=== PATIENT | female | born 1970 | race Caucasian/White ===

== ENCOUNTER 2020-11-08 22:50 | Day surgery (SDCO) | payer SELFPAY ==
[~2020-11-08] VITALS: Ht 170.2 cm; Wt 71.8 kg
[~2020-11-08 22:50] MED LIST: ALLOPURINOL300 MG PO; ATENOLOL25 MG PO; BENTYL10 MG PO; CARTIA XT240 MG PO; COZAAR50 MG PO; ELIQUIS5 MG PO; GLUCOTROL XL5 MG PO; HCTZ25 MG PO; HYDROCHLOROTH12.5 MG PO; K-DUR20 MEQ PO; LASIX40 MG PO; LISINOPRIL 10MG10 MG PO; NORVASC5 MG PO; PLAVIX75 MG PO; PROTONIX 40MG T40 MG PO; SIMVASTATIN20 MG PO; XANAX0.5 MG PO; ZOLOFT50 MG PO
[2020-11-09 00:54] LABS: BASOPHIL 1.3 % (0-2); HGB 12.3 g/dl (12.5-16.0); LYMPHOCYTE 19.3 % (15-48); MCH 33.1 pg (25.0-31.0); MCHC 37.3 g/dL (32.0-36.0); MCV 88.7 fL (78.0-100.0); MONOCYTE 9.6 % (0-12); MPV 10.6 fL (6.0-9.5); NEUTROPHIL 68.5 % (41-80); NRBC 0; PLT 161 K/uL (150-400); RBC 3.72 M/uL (4.20-5.40); RDW 11.5 % (11.5-14.0); WBC 3.8 K/uL (4.0-10.5)
[2020-11-09 00:58] LABS: BILIRUBIN NEGATIVE (NEGATIVE); BLOOD NEGATIVE Ery/uL (NEGATIVE); CLARITY CLEAR (CLEAR); COLOR YELLOW (YELLOW); GLUCOSE (U) NORMAL (NORMAL); LEUKOCYTES 1+ Leu/uL (NEGATIVE); NITRITE POSITIVE (NEGATIVE); PROTEIN NEGATIVE (NEGATIVE); UROBILINOGEN 0.2 mg/dL (0.2-1.0); pH 6.5 (5.0-9.0)
[2020-11-09 01:00] LABS: AMPHETAMINES NEGATIVE (NEGATIVE); BARBITURATES NEGATIVE (NEGATIVE); ECSTASY (MDMA) NEGATIVE (NEGATIVE); MARIJUANA (THC) NEGATIVE (NEGATIVE); METHADONE NEGATIVE (NEGATIVE); OPIATES NEGATIVE (NEGATIVE); OXYCODONE NEGATIVE (NEGATIVE)
[2020-11-09 01:06] LABS: BACTERIA 4+; URINARY WBC RARE
[2020-11-09 01:15] LABS: LACTIC ACID 3.1 mmol/L (0.4-1.9)
[2020-11-09 01:20] LABS: ALBUMIN 4.1 g/dL (3.4-5.0); ALKALINE PHOSHATASE 114 U/L (46-116); ALT 48 U/L (14-59); AST 62 U/L (15-37); BILIRUBIN - TOTAL 0.5 mg/dL (0.2-1.0); BUN 5 mg/dL (7-18); BUN/CREAT RATIO (CALC) 8.2 RATIO; CHLORIDE 84 mmol/L (98-107); CO2 (BICARBONATE) 22 mmol/L (21-32); CREATININE 0.61 mg/dL (0.51-0.95); GLOBULIN (CALCULATION) 4.1 g/dL; GLUCOSE 93 mg/dL (74-106); MAGNESIUM 1.6 mg/dL (1.8-2.4); POTASSIUM 4.6 mmol/L (3.5-5.1); TOTAL PROTEIN 8.2 g/dL (6.4-8.2)
[2020-11-09 01:28] LABS: ACETAMINOPHEN (TYLENOL) < 2.0 ug/mL (10.0-30.0)
[2020-11-09] MEDS ORDERED: NEURONTIN300 MG PO (06:20)
[2020-11-09] MEDS ORDERED: BUSPIRONE HCL15 MG PO (06:21)
[2020-11-09 07:35] LABS: BUN/CREAT RATIO (CALC) 6.5 RATIO; CREATININE 0.62 mg/dL (0.51-0.95); MAGNESIUM 1.3 mg/dL (1.8-2.4); POTASSIUM 4.1 mmol/L (3.5-5.1)
[2020-11-09 07:40] LABS: LACTIC ACID 1.8 mmol/L (0.4-1.9)
[2020-11-09 14:17] LABS: BUN/CREAT RATIO (CALC) 4.8 RATIO; CREATININE 0.63 mg/dL (0.51-0.95); POTASSIUM 3.5 mmol/L (3.5-5.1)
[2020-11-10 05:48] LABS: BASOPHIL 0.6 % (0-2); EOSINOPHIL 1.8 % (0-5); HCT 31.6 % (37.0-47.0); HGB 11.6 g/dl (12.5-16.0); LYMPHOCYTE 16.7 % (15-48); MCH 33.8 pg (25.0-31.0); MCHC 36.7 g/dL (32.0-36.0); MCV 92.1 fL (78.0-100.0); MONOCYTE 10.3 % (0-12); MPV 11.3 fL (6.0-9.5); NEUTROPHIL 70.6 % (41-80); NRBC 0; PLT 127 K/uL (150-400); RBC 3.43 M/uL (4.20-5.40); RDW 11.8 % (11.5-14.0); WBC 3.4 K/uL (4.0-10.5)
[2020-11-10 06:24] LABS: ALBUMIN 3.5 g/dL (3.4-5.0); BILIRUBIN - TOTAL 0.6 mg/dL (0.2-1.0); BUN/CREAT RATIO (CALC) 6.8 RATIO; CREATININE 0.73 mg/dL (0.51-0.95); GLOBULIN (CALCULATION) 3.7 g/dL; MAGNESIUM 1.8 mg/dL (1.8-2.4); TOTAL PROTEIN 7.2 g/dL (6.4-8.2)
[2020-11-10] MEDS ORDERED: CARAFATE1 GM PO (08:16)
[2020-11-10] MEDS ORDERED: NICOTINE PATCH1 EAC2 EXT (08:16)
[2020-11-10] MEDS ORDERED: KEFLEX250 MG PO (08:16)
[2020-11-10] MEDS ORDERED: ZOFRAN4 M1 PO (08:16)
--- NOTE | 2020-11-10 09:37 | NUR ---
11/10/20 Ms. Esquivel lives at home with her spouse. Her spouse started a new job and will have insurance in several days.
== END 2020-11-10 11:18 | disposition home or self-care (01) ==
LOC: FER 22:50 → FICU 11-09 03:09
PROVIDERS: Emergency Medicine Emergency Medical Services; Hospitalist; Nurse Practitioner; ADMIT Allergy & Immunology Allergy
DX: E87.1 Hypo-osmolality and hyponatremia (principal); F10.10 Alcohol abuse, uncomplicated; G93.41 Metabolic encephalopathy; I10 Essential (primary) hypertension; Z88.2 Allergy status to sulfonamides; F41.9 Anxiety disorder, unspecified; F17.210 Nicotine dependence, cigarettes, uncomplicated; N30.00 Acute cystitis without hematuria; F32.9 Major depressive disorder, single episode, unspecified; I49.8 Other specified cardiac arrhythmias; Z20.822 Contact with and (suspected) exposure to COVID-19
CPT/HCPCS: 36415; 36600; 71045; 80048; 80053; 80305; 81001; 82803; 83605; 83735; 83880; 84484; 85025; 85379; 87040; 87076; 87088; 87186; 93005; 94010; C9113; G0378; G0480; J0696; J1650; J1940; J2060; J2405; J2543; J2550; J2800; J3411; J3475; J7030; J7050; J7120; U0002

== ENCOUNTER 2022-01-20 09:20 | Emergency (ER) | payer OTHER ==
[~2022-01-20 09:20] MED LIST changes: +BUSPIRONE HCL15 MG PO; +CARAFATE1 GM PO; +KEFLEX250 MG PO; +NEURONTIN300 MG PO; +NICOTINE PATCH1 EAC2 EXT; +ZOFRAN4 M1 PO
[2022-01-20 10:31] LABS: BASOPHIL 0.5 % (0-2); EOSINOPHIL 0.1 % (0-5); HCT 35.1 % (37.0-47.0); HGB 12.4 g/dl (12.5-16.0); LYMPHOCYTE 6.2 % (15-48); MCH 33.6 pg (25.0-31.0); MCHC 35.3 g/dL (32.0-36.0); MCV 95.1 fL (78.0-100.0); MONOCYTE 4.6 % (0-12); MPV 10.8 fL (6.0-9.5); NEUTROPHIL 88.2 % (41-80); NRBC 0; PLT 158 K/uL (150-400); RBC 3.69 M/uL (4.20-5.40); RDW 12.3 % (11.5-14.0); WBC 7.6 K/uL (4.0-10.5)
[2022-01-20 10:37] LABS: AMPHETAMINES NEGATIVE (NEGATIVE); BARBITURATES NEGATIVE (NEGATIVE); ECSTASY (MDMA) NEGATIVE (NEGATIVE); MARIJUANA (THC) NEGATIVE (NEGATIVE); METHADONE NEGATIVE (NEGATIVE); OPIATES NEGATIVE (NEGATIVE); OXYCODONE NEGATIVE (NEGATIVE)
[2022-01-20 10:40] LABS: BILIRUBIN NEGATIVE (NEGATIVE); BLOOD TRACE-INTACT Ery/uL (NEGATIVE); CLARITY CLEAR (CLEAR); COLOR YELLOW (YELLOW); GLUCOSE (U) NORMAL (NORMAL); PROTEIN NEGATIVE (NEGATIVE); SPECIFIC GRAVITY 1.015 (1.001-1.030)
[2022-01-20 10:41] LABS: LEUKOCYTES 2+ Leu/uL (NEGATIVE); NITRITE POSITIVE (NEGATIVE)
[2022-01-20 10:43] LABS: BACTERIA 2+; URINARY RBC RARE
[2022-01-20 10:45] LABS: INR 1.01 (0.9-1.2); PTT 25.8 SECONDS (24.9-34.6)
[2022-01-20 11:29] LABS: ALBUMIN 4.5 g/dL (3.4-5.0); ALKALINE PHOSHATASE 106 U/L (46-116); ALT 31 U/L (14-59); AST 37 U/L (15-37); BILIRUBIN - TOTAL 0.5 mg/dL (0.2-1.0); BUN 5 mg/dL (7-18); BUN/CREAT RATIO (CALC) 7.6 RATIO; CHLORIDE 86 mmol/L (98-107); CO2 (BICARBONATE) 26 mmol/L (21-32); CREATININE 0.66 mg/dL (0.51-0.95); GLOBULIN (CALCULATION) 3.8 g/dL; GLUCOSE 102 mg/dL (74-106); LIPASE 119 U/L (73-393); POTASSIUM 5.1 mmol/L (3.5-5.1); TOTAL PROTEIN 8.3 g/dL (6.4-8.2)
[2022-01-20] MEDS ORDERED: ONDANSETRON ODT4 MG PO (13:58)
[2022-01-20] MEDS ORDERED: BACTRIM DS TAB1 EACH PO (13:58)
[2022-01-20] MEDS ORDERED: CIPRO500 MG PO (14:30)
[2022-01-20 15:54] LABS: CORONAVIRUS 2019 SARS-COV-2 NEGATIVE (NEGATIVE); INFLUENZA A NAA NEGATIVE (NEGATIVE)
== END 2022-01-20 14:45 | disposition home or self-care (01) ==
LOC: FER 09:20
PROVIDERS: Internal Medicine
DX: F13.239 Sedative, hypnotic or anxiolytic dependence with withdrawal, unspecified (principal); E87.1 Hypo-osmolality and hyponatremia; N39.0 Urinary tract infection, site not specified; I10 Essential (primary) hypertension; F17.210 Nicotine dependence, cigarettes, uncomplicated; Z88.2 Allergy status to sulfonamides; Z79.899 Other long term (current) drug therapy; Z20.822 Contact with and (suspected) exposure to COVID-19
CPT/HCPCS: 36415; 80053; 80305; 81001; 83690; 84484; 85025; 85610; 85730; 87076; 87088; 87186; 93005; G0480; J0696; J2060; J2405; J7030; U0002